=== PATIENT | male | born 1955 | race Caucasian/White ===

== ENCOUNTER 2018-02-04 18:51 | Inpatient (IN) ==
--- NOTE | 2018-02-04 20:09 | ED ---
HPI General Chief complaint: Extremity Injury, Upper Stated complaint: fish hook in finger recheck Time Seen by Provider: 02/04/18 19:31 Source: patient Mode of arrival: ambulatory Limitations: no limitations History of Present Illness HPI narrative: 62-year-old male with history of type 2 diabetes and hypertension , presents emergency department for evaluation of right third digit pain and swelling. Patient states yesterday morning he got a fishhook in the distal aspect of his right third digit. He removed it. He developed some pain and swelling so he went to urgent care. He was started on Bactrim. He has taken this today. He states throughout the course the day the finger has only become more swollen and painful. Patient now has red streaking up the anterior aspect of his right arm to his mid bicep. He has had a low-grade fever and chills. He feels as though something just is not right. He has no other symptoms to report. Related Data Home Medications Medication Instructions Recorded Confirmed amlodipine 5 mg PO DAILY 02/04/18 02/04/18 coenzyme Q10 [Co Q-10] 100 mg PO DAILY 02/04/18 02/04/18 lisinopril-hydrochlorothiazide 1 tab PO DAILY 02/04/18 02/04/18 metformin 1,000 mg PO BID 02/04/18 02/04/18 metoprolol succinate 50 mg PO DAILY 02/04/18 02/04/18 Allergies Allergy/AdvReac Type Severity Reaction Status Date / Time No Known Allergies Allergy Unverified 02/04/18 19:19 Review of Systems ROS: all other systems reviewed are negative PMFSH Medical History Medical History Blood clot in bladder (Acute) Diabetes (Acute) Hypertension (Acute) Pulmonary lump (Acute) Social History Social History Substance History: No History of Abuse Second Hand Smoke Exposure: No Smoking Status: Former smoker How Often Do You Have a Drink Containing Alcohol: 4 or more times a week Recent Travel in [facility] within the Last 8 Weeks: No Recent Out of Country Travel within the Last 8 Weeks: No Immunization History Tetanus Immunization: Unsure Hx Influenza Vaccine This Season: Yes Exam Narrative Exam Narrative: GENERAL: Well-nourished male patient, ambulatory no acute distress. SKIN: Focused skin assessment warm/dry. There is a healed over puncture wound on the volar surface of the distal right third digit. There is associated edema around that area. The finger itself is mildly edematous and erythematous. Patient has erythema extending from the dorsal aspect of the right hand extending up to the mid bicep. There is no axilla tenderness. There are few palpable axilla lymph nodes. HEAD: Atraumatic. Normocephalic. EYES: Pupils equal and round. No scleral icterus. No injection or drainage. ENT: No nasal bleeding or discharge. Mucous membranes pink and moist. NECK: Trachea midline. No JVD. CARDIOVASCULAR: Regular rate and rhythm. No murmur appreciated. RESPIRATORY: No accessory muscle use. Clear to auscultation. Breath sounds equal bilaterally. GASTROINTESTINAL: Abdomen soft, non-tender, nondistended. Hepatic and splenic margins not palpable. MUSCULOSKELETAL: No obvious deformities. No clubbing. No cyanosis. NEUROLOGICAL: Awake and alert. No obvious cranial nerve deficits. Motor grossly within normal limits. Normal speech. PSYCHIATRIC: Appropriate mood and affect; insight and judgment normal. Course Initial Documented Vital Signs Temperature 99.5 F 02/04/18 19:12 Pulse Rate 85 02/04/18 19:12 Respiratory Rate 20 02/04/18 19:12 Blood Pressure 145/71 H 02/04/18 19:12 Pulse Oximetry 97 02/04/18 19:12 Last Documented Vital Signs Temperature 99.5 F 02/04/18 19:12 Pulse Rate 85 02/04/18 19:12 Respiratory Rate 20 02/04/18 19:12 Blood Pressure 145/71 H 02/04/18 19:12 Pulse Oximetry 97 02/04/18 19:12 Medical Decision Making DONOVAN Attestation DONOVAN supervised visit: Yes MDM Narrative Medical decision making narrative: 62-year-old male presents emergency department for evaluation of a fishhook stick to his right third digit. Patient appears well. He has low-grade temperature. The right third digit is mildly edematous with limited flexion and extension that exacerbates pain. He also has associated lymph nodes. I discussed the patient with hand surgeon, Dr. Dietz who actually evaluated the patient at bedside and felt that admission for IV antibiotics would be beneficial. He states that last the patient worsens, he will not need to be consulted. Plan is discussed with the patient and his family. Lab work is reviewed. Patient does have a leukocytosis of 17.5. Lactic acid is still pending. BMP is without acute concern. Patient be admitted to hospitalist for IV antibiotics. Medical Screen Exam Complete: Yes Emergency Medical Condition: Yes Differential Diagnosis Differential Diagnosis: Abscess versus tenosynovitis versus cellulitis versus lymphangitis versus sepsis Lab Data Lab results reviewed: Yes I reviewed the patient's lab results. Result diagrams: 02/04/18 20:15 02/04/18 20:15 Lab Results 02/04/18 02/04/18 02/04/18 Range/Units 20:15 20:15 20:15 WBC 17.5 H (4.0-11.0) th/mm3 RBC 4.04 L (4.50-5.90) mil/mm3 Hgb 15.0 (13.0-17.0) gm/dL Hct 42.8 (39.0-51.0) % MCV 106.0 H (80.0-100.0) fL MCH 37.0 H (27.0-34.0) pg MCHC 34.9 (32.0-36.0) % RDW 12.7 (11.6-17.2) % Plt Count 153 (150-450) th/mm3 MPV 7.4 (7.0-11.0) fL Neut % (Auto) 87.9 H (16.0-70.0) % Lymph % (Auto) 2.8 L (9.0-44.0) % [place] % (Auto) 9.1 H (0.0-8.0) % Eos % (Auto) 0.0 (0.0-4.0) % Baso % (Auto) 0.2 (0.0-2.0) % Neut # (Auto) 15.3 H (1.8-7.7) th/mm3 Lymph # (Auto) 0.5 L (1.0-4.8) th/mm3 [place] # (Auto) 1.6 H (0.0-0.9) th/mm3 Eos # (Auto) 0.0 (0.0-0.4) th/mm3 Baso # (Auto) 0.0 (0.0-0.2) th/mm3 WBC Differential . Differential Comment Auto diff final PT 10.7 (9.8-11.6) sec INR 1.1 Ratio APTT 26.2 (24.3-30.1) sec Sodium 135 L (136-145) meq/L Potassium 4.0 (3.5-5.1) meq/L Chloride 98 (98-107) meq/L Carbon Dioxide 17.9 L (21.0-32.0) meq/L Anion Gap 19 H (5-15) meq/L BUN 16 (7-18) mg/dL Creatinine 1.04 (0.60-1.30) mg/dL Estimated GFR 73 L (>89) mL/min Random Glucose 167 H (74-106) mg/dL Calcium 9.8 (8.5-10.1) mg/dL Imaging Data Radiologist's impression: Finger X-Ray 02/04/18 19:49 CONCLUSION: No evidence of recent bony injury. Discharge Plan Discharge Disposition Patient Disposition: 30 Still Patient Discharge Details Diagnosis: Cellulitis of finger of right hand, Acute lymphangitis Physicians Team ED Provider: Kumar Jackson ED Midlevel Provider: Caitlyn Rivas Primary Care Provider: UNKNOWN, Rxs /Orders / Referrals /Forms Prescriptions: No Action metoprolol succinate 50 mg Tablet Extended Release 24 Hr 50 mg PO DAILY RF: 0 amlodipine 5 mg Tablet 5 mg PO DAILY RF: 0 metformin 1,000 mg Tablet 1,000 mg PO BID RF: 0 lisinopril-hydrochlorothiazide 10-12.5 mg Tablet 1 tab PO DAILY RF: 0 coenzyme Q10 [Co Q-10] 100 mg Capsule 100 mg PO DAILY RF: 0 Status ED Status: With Doctor
[2018-02-04 20:39] LABS: Baso % (Auto) 0.2 % (0.0-2.0); Hematocrit 42.8 % (39.0-51.0); Lymph # (Auto) 0.5 th/mm3 (1.0-4.8); Lymph % (Auto) 2.8 % (9.0-44.0); Mean Corpuscular HGB Conc 34.9 % (32.0-36.0); Mean Platelet Volume 7.4 fL (7.0-11.0); Mono # (Auto) 1.6 th/mm3 (0.0-0.9); Mono % (Auto) 9.1 % (0.0-8.0); Neut # (Auto) 15.3 th/mm3 (1.8-7.7); Neut % (Auto) 87.9 % (16.0-70.0); Platelet Count 153 th/mm3 (150-450); Red Blood Count 4.04 mil/mm3 (4.50-5.90); Red Cell Distribution Width 12.7 % (11.6-17.2); White Blood Count 17.5 th/mm3 (4.0-11.0)
[2018-02-04 20:45] LABS: Activated Partial Thrombo Time 26.2 sec (24.3-30.1); INR 1.1 Ratio; Prothrombin Time 10.7 sec (9.8-11.6)
--- NOTE | 2018-02-04 20:49 | XR ---
EXAM DATE: 02/04/2018 8:17 PM EDT AGE/SEX: 62 years / Male INDICATIONS: Swelling and pain to right 3rd MCPJ status post having fish hook stuck in hand. CLINICAL DATA: This is the patient's initial encounter. Patient reports that signs and symptoms have been present for 3 days and indicates a pain score of 4/10. MEDICAL/SURGICAL HISTORY: None. None. COMPARISON: No prior exams available for comparison. FINDINGS: Bony structures are intact and in normal alignment. Joints are intact without dislocation or signifi cant arthropathy. Osseous density is normal. Soft tissues are unremarkable. No metallic foreign nemesio dies seen. CONCLUSION: No evidence of recent bony injury. Electronically signed by: Hilario Adam MD 02/04/2018 8:47 PM EDT
[2018-02-04 20:56] LABS: Calcium 9.8 mg/dL (8.5-10.1); Carbon Dioxide 17.9 meq/L (21.0-32.0)
[2018-02-04] MEDS ORDERED: Bisacodyl 10 MG Supp RECTAL PRN (22:34)
[2018-02-04] MEDS ORDERED: Temazepam 15 MG Capsule PO PRN (22:34)
[2018-02-04] MEDS ORDERED: Acetaminophen 325 MG Tablet PO PRN (22:34)
[2018-02-04] MEDS ORDERED: Dextrose 50% in Water 50 ML Vial IV.PUSH PRN (22:39)
[2018-02-04] MEDS ORDERED: Heparin - SQ 10,000 UNITS/ML Vial SQ SCH (22:45)
[2018-02-04] MEDS: Sod Chloride 0.9% Inj 1,000 ML IV.CONT SCH (22:59)
--- NOTE | 2018-02-04 23:59 | P.HP ---
History of Present Illness Service: [facility] Primary Care Physician: UNKNOWN History of Present Illness: 62-year-old male with past medical history significant for diabetes mellitus and hypertension presents to the emergency department for the evaluation of right third digit pain and swelling. The patient reports that yesterday he was fishing when he got a fishhook puncture wound in the finger. He states that he developed some pain and swelling so he went to urgent care for further evaluation and was given Bactrim. The patient reports that throughout the course of the day his hand has become more swollen, he states his knuckles are no longer identifiable and the dorsum of his hand is red and painful. The swelling and erythema extends up his arm. He denies any associated fever/ chills. He has difficulty with range of motion. No chest pain or shortness of breath. No abdominal pain. No nausea/vomiting/diarrhea. Inpatient Certification: I certify that the inpatient services were ordered in accordance with Medicare regulations governing the order. This includes certification that hospital inpatient services are reasonable and necessary and in the case of services not specified as inpatient-only under 42 CFR 419.22(n), that they are appropriately provided as inpatient services in accordance to with the 2-midnight benchmark under 43 CFR 412.3(e) Estimated Total Length of Stay (Days): 3 Plans for Post Hospital Care: Home Review of Systems All other systems reviewed negative except as stated in HPI [facility] - History History Provided By: Patient - Medical History Medical History: Medical History (Last Reviewed 02/04/18 @ 21:00 by Caitlyn Rivas [employer]PERATOR) Blood clot in bladder Diabetes Hypertension Pulmonary lump - Surgical History Surgical History: Surgical History (Last Updated 02/04/18 @ 23:52 by Meli Burton MD) History of lung surgery - Family History Family History: Family History (Last Updated 02/04/18 @ 23:52 by Meli Burton MD) Other Diabetes mellitus Lung cancer - Tobacco History Second Hand Smoke Exposure: No Smoking Status: Former smoker - Alcohol History How Often Do You Have a Drink Containing Alcohol: 4 or more times a week - Substance Use History Substance History: No History of Abuse - Travel History Recent Travel in the [place] Within the Last 8 Weeks: No Recent Travel Out of the Country Within the Last 8 Weeks: No - Immunization History Tetanus Immunization: Unsure Hx Influenza Vaccine This Season: Yes Medications and Allergies Active Medications: Active Medications Acetaminophen (Tylenol) 650 mg PO Q4H PRN PRN Reason: Temp > 100.4 Hydrocodone Bitart/Acetaminophen ([place] 5/325) 1 tab PO Q4H PRN PRN Reason: pain > 4 Last Admin: 02/04/18 23:00 Dose: 1 tab Al Hydroxide/Mg Hydroxide (Milk Of Honorio Salvadorq) 30 ml PO Q12H PRN PRN Reason: Mild Constipation Amlodipine Besylate (Norvasc) 5 mg PO DAILY WAYNE Bisacodyl (Dulcolax Supp) 10 mg RECTAL DAILY PRN PRN Reason: SEVERE CONSITIPATION Dextrose (D50w Vial) 50 ml IV.PUSH UNSCH PRN PRN Reason: PER HYPOGLYCEMIA PROTOCOL Glucagon (Glucagon Inj) 1 mg OTHER PRN PRN PRN Reason: for Hypoglycemia Protocol Heparin Sodium (Porcine) (Heparin Inj) 5,000 units SQ Q8H WAYNE Last Admin: 02/04/18 22:59 Dose: Not Given Ceftriaxone Sodium 1,000 mg/ (Sodium Chloride) 100 mls @ 200 mls/hr IV.SIG Q24H WAYNE Doxycycline Hyclate 100 mg/ (Sodium Chloride) 100 mls @ 100 mls/hr IV.SIG Q12H WAYNE Sodium Chloride (Ns Inj) 1,000 mls @ 125 mls/hr IV.CONT .Q8H WAYNE Last Admin: 02/04/18 22:59 Dose: 125 mls/hr Vancomycin HCl 1,000 gm/ (Sodium Chloride) 250 mls @ 200 mls/hr IV.SIG ONCE ONE Stop: 02/05/18 01:44 Insulin Aspart (Novolog Insulin Correctional Sugar Inj) 0 unit SQ ACHS AND 3AM WAYNE; Protocol Lisinopril (Prinivil) 10 mg PO DAILY [facility] Metoprolol Succinate (Toprol Xl) 50 mg PO DAILY [facility] Ondansetron HCl (Zofran Inj) 4 mg IV.PUSH Q6H PRN PRN Reason: NAUSEA OR VOMITING Sennosides (Senokot) 17.2 mg PO Q12H PRN PRN Reason: Moderate Constipation Temazepam (Restoril) 15 mg PO HS PRN PRN Reason: INSOMNIA Allergies Allergy/AdvReac Type Severity Reaction Status Date / Time No Known Allergies Allergy Unverified 02/04/18 19:19 Home Medications Medication Instructions Recorded Confirmed Type amlodipine 5 mg PO DAILY 08/21/18 08/21/18 History coenzyme Q10 [Co Q-10] 100 mg PO DAILY 02/04/18 02/04/18 History lisinopril-hydrochlorothiazide 1 tab PO DAILY 02/04/18 02/04/18 History metformin 1,000 mg PO BID 02/04/18 02/04/18 History metoprolol succinate 50 mg PO DAILY 02/04/18 02/04/18 History Exam Vital signs: Vital Signs 02/04/18 19:12 02/04/18 22:08 Temperature 99.5 F Pulse Rate 85 88 Respiratory Rate 20 20 Blood Pressure 145/71 H 136/71 Pulse Oximetry 97 96 Narrative: Gen.: No acute distress Head: Normocephalic. Atraumatic. EENT: Pupils equal round and reactive to light. Nose without drainage. Airway intact. Throat without injection. Cardiovascular: Regular rate and rhythm. No murmurs, rubs or gallops. Respiratory: Lungs clear to auscultation bilaterally. No wheezes or rhonchi. Abdomen: Soft, nontender, nondistended. No peritoneal signs. Musculoskeletal: No gross deformities. No edema. Skin: Healed puncture wound over the volar surface of the distal right third digit. Associated edema and erythema. Erythema extends from the dorsal aspect of the right hand to the mid bicep. Neuro: Sensory and motor grossly intact. Cranial nerves II through XII grossly intact. Psych: Appropriate mood and affect Results - Labs CBC & Chem 7: 02/04/18 20:15 02/04/18 20:15 Labs: Laboratory Results - last 24 hr 02/04/18 02/04/18 02/04/18 20:15 20:15 20:15 WBC 17.5 H RBC 4.04 L Hgb 15.0 Hct 42.8 MCV 106.0 H MCH 37.0 H MCHC 34.9 RDW 12.7 Plt Count 153 MPV 7.4 Neut % (Auto) 87.9 H Lymph % (Auto) 2.8 L [place] % (Auto) 9.1 H Eos % (Auto) 0.0 Baso % (Auto) 0.2 Neut # (Auto) 15.3 H Lymph # (Auto) 0.5 L [place] # (Auto) 1.6 H Eos # (Auto) 0.0 Baso # (Auto) 0.0 WBC Differential . Differential Comment Auto diff final PT 10.7 INR 1.1 APTT 26.2 Sodium 135 L Potassium 4.0 Chloride 98 Carbon Dioxide 17.9 L Anion Gap 19 H BUN 16 Creatinine 1.04 Estimated GFR 73 L Random Glucose 167 H Lactic Acid Calcium 9.8 02/04/18 20:15 WBC RBC Hgb Hct MCV MCH MCHC RDW Plt Count MPV Neut % (Auto) Lymph % (Auto) [place] % (Auto) Eos % (Auto) Baso % (Auto) Neut # (Auto) Lymph # (Auto) [place] # (Auto) Eos # (Auto) Baso # (Auto) WBC Differential Differential Comment PT INR APTT Sodium Potassium Chloride Carbon Dioxide Anion Gap BUN Creatinine Estimated GFR Random Glucose Lactic Acid 7.6 H* Calcium - Imaging Impressions Finger X-Ray 02/04/18 19:49 CONCLUSION: No evidence of recent bony injury. Caprini VTE Risk Assessment Caprini VTE Risk Assessment: Moderate/High Risk (score >= 2) Caprini Risk Assessment Model: Point Value = 1 Point Value = 2 Point Value = 3 Point Value = 5 Age 41-60 Minor surgery BMI > 25 kg/m2 Swollen legs Varicose veins or History of unexplained or recurrent spontaneous Oral contraceptives or hormone replacement Sepsis (< 1 month) Serious lung disease, including pneumonia (< 1 month) Abnormal pulmonary function Acute myocardial infarction Congestive heart failure (< 1 month) History of inflammatory bowel disease Medical patient at bed rest Age 61-74 Arthroscopic surgery Major open surgery (> 45 min) Laparoscopic surgery (> 45 min) Malignancy Confined to bed (> 72 hours) Immobilizing plaster cast Central venous access Age >= 75 History of VTE Family history of VTE Factor V Leiden Prothrombin [id number] Lupus anticoagulant Anticardiolipin antibodies Elevated serum homocysteine Heparin-induced thrombocytopenia Other congenital or acquired thrombophilia Stroke (< 1 month) Elective arthroplasty Hip, pelvis, or leg fracture Acute spinal cord injury (< 1 month) Prophylaxis Regimen: Total Risk Factor Score Risk Level Prophylaxis Regimen 0-1 Low Early ambulation 2 Moderate Order ONE of the following: *Sequential Compression Device (SCD) *Heparin 5000 units SQ BID 3-4 Higher Order ONE of the following medications: *Heparin 5000 units SQ TID *Enoxaparin/Lovenox 40 mg SQ daily (WT < 150 kg, CrCl > 30 mL/min) *Enoxaparin/Lovenox 30 mg SQ daily (WT < 150 kg, CrCl > 10-29 mL/min) *Enoxaparin/Lovenox 30 mg SQ BID (WT < 150 kg, CrCl > 30 mL/min) AND/OR *Sequential Compression Device (SCD) 5 or more Highest Order ONE of the following medications: *Heparin 5000 units SQ TID (Preferred with Epidurals) *Enoxaparin/Lovenox 40 mg SQ daily (WT < 150 kg, CrCl > 30 mL/min) *Enoxaparin/Lovenox 30 mg SQ daily (WT < 150 kg, CrCl > 10-29 mL/min) *Enoxaparin/Lovenox 30 mg SQ BID (WT < 150 kg, CrCl > 30 mL/min) AND *Sequential Compression Device (SCD) Assessment and Plan - Plan Assessment/plan: 1. Right finger/hand cellulitis/sepsis Finger x-ray negative for bony abnormalities Lactic acid elevated at 7.6, repeat pending Doxycycline/vancomycin/Rocephin to cover for possible vibrio Patient evaluated by the hand surgeon who recommends IV antibiotics and requests consult if patient does not improve clinically 2. Diabetes mellitus Sliding-scale insulin Monitor blood glucose 3. Hypertension Continue home medications FEN N.p.o. Electrolytes: Monitor and replete as needed NS at 1 25 cc/hour Holding pharmacologic anticoagulation for possible operative intervention
[2018-02-05] MEDS ORDERED: VANCOMYCIN IV.SIG ONE (00:30)
[2018-02-05] MEDS ORDERED: SODIUM CHLOR 0.9% IV.SIG ONE (00:30)
[2018-02-05] MEDS: Insulin NovoLOG Aspart Correctional Sugar Inj SQ SCH ×5 (03:09→22:01)
[2018-02-05] MEDS ORDERED: Lisinopril 10 MG Tablet PO SCH (09:00)
[2018-02-05 10:15] LABS: Baso % (Auto) 0.2 % (0.0-2.0); Eos % (Auto) 0.1 % (0.0-4.0); Hematocrit 39.5 % (39.0-51.0); Lymph # (Auto) 0.8 th/mm3 (1.0-4.8); Lymph % (Auto) 6.3 % (9.0-44.0); Mean Corpuscular HGB Conc 35.6 % (32.0-36.0); Mean Corpuscular Hemoglobin 37.9 pg (27.0-34.0); Mean Corpuscular Volume 106.4 fL (80.0-100.0); Mono # (Auto) 1.2 th/mm3 (0.0-0.9); Mono % (Auto) 9.3 % (0.0-8.0); Neut # (Auto) 11.1 th/mm3 (1.8-7.7); Neut % (Auto) 84.1 % (16.0-70.0); Platelet Count 123 th/mm3 (150-450); Red Blood Count 3.71 mil/mm3 (4.50-5.90); Red Cell Distribution Width 12.6 % (11.6-17.2); White Blood Count 13.2 th/mm3 (4.0-11.0)
[2018-02-05] MEDS: amLODIPine 5 MG Tablet PO SCH (10:17)
[2018-02-05] MEDS: Sod Chloride 0.9% Inj 1,000 ML IV.CONT SCH ×2 (10:19→15:13)
[2018-02-05 10:38] LABS: Anion Gap 9 meq/L (5-15); Blood Urea Nitrogen 12 mg/dL (7-18); Calcium 8.9 mg/dL (8.5-10.1); Carbon Dioxide 26.8 meq/L (21.0-32.0); Chloride 105 meq/L (98-107); Glomerular Filtration Rate Greater Than 89 mL/min (>89); Glucose,Random 166 mg/dL (74-106); Potassium 3.6 meq/L (3.5-5.1); Sodium 141 meq/L (136-145)
--- NOTE | 2018-02-05 11:39 | P.PN ---
Subjective Interval history: Follow-up for right third digit and hand cellulitis. The patient is concerned today as he reports increasing swelling of the right third digit and into the dorsal hand with increased red streaking up the arm. He denies fevers or chills. Denies any other medical complaints. He is requesting to see the hand surgeon. Physical Exam Vital signs: Vital Signs 02/04/18 19:12 02/04/18 22:08 02/05/18 00:00 Temperature 99.5 F 99.7 F H Pulse Rate 85 88 79 Respiratory Rate 20 20 16 Blood Pressure 145/71 H 136/71 144/76 H Pulse Oximetry 97 96 97 02/05/18 04:00 02/05/18 07:56 Temperature 98.0 F 98.1 F Pulse Rate 66 71 Respiratory Rate 15 16 Blood Pressure 130/75 138/64 Pulse Oximetry 96 96 Intake & Output 02/04/18 02/05/18 02/05/18 18:59 06:59 18:59 Intake Total 450 / 450 1000 / 1000 Balance 450 / 450 1000 / 1000 Weight 86 kg Intake: IV 450 / 450 1000 / 1000 NS Inj 1,000 ML @ 125 mls/hr IV 1000 / 1000 .CONT .Q8H [facility] Rx#:[id number] Doxy 100 Inj 100 MG In NS Inj 100 / 100 100 ML @ 100 mls/hr IV.SIG Q12H [facility] Rx#:[id number] Vancomycin Inj 1,000 GM In NS 250 / 250 Inj 250 ML @ 200 mls/hr IV.SIG ONCE ONE Rx#:[id number] Rocephin Inj 1,000 MG In NS Inj 100 / 100 100 ML @ 200 mls/hr IV.SIG Q24H [facility] Rx#:[id number] Other: Weight On Admission 86 kg Narrative: GENERAL: Well-nourished, well-developed pleasant middle-age male patient in [facility]. SKIN: Warm and dry. Right 3rd digit with diffuse erythema/edema and distal ecchymosis, with erythema/edema that extends to the dorsal MCP joints, some faint streaking up to the mid forearm and again in the medial upper arm, consistent with lymphangitis. HEENT: Normocephalic. Atraumatic. Pupils equal and round. Mucous membranes pink and moist. CARDIOVASCULAR: Regular rate and rhythm. No murmur appreciated. RESPIRATORY: No accessory muscle use. Clear to auscultation. Breath sounds equal bilaterally. GASTROINTESTINAL: Abdomen soft, non-tender, nondistended. Normoactive bowel sounds x4. MUSCULOSKELETAL: No obvious deformities. Extremities without clubbing, cyanosis , or edema. See skin assessment above. Right third digit with decreased ROM secondary to edema. NEUROLOGICAL: Awake and alert. No obvious cranial nerve deficits.Moving all extremities spontaneously. Normal speech. PSYCHIATRIC: Appropriate mood and affect; insight and judgment normal. Results - Labs CBC & Chem 7: 02/05/18 09:07 02/05/18 09:07 Laboratory Results - last 24 hr 02/04/18 02/04/18 02/04/18 20:15 20:15 20:15 WBC 17.5 H RBC 4.04 L Hgb 15.0 Hct 42.8 MCV 106.0 H MCH 37.0 H MCHC 34.9 RDW 12.7 Plt Count 153 MPV 7.4 Neut % (Auto) 87.9 H Lymph % (Auto) 2.8 L [place] % (Auto) 9.1 H Eos % (Auto) 0.0 Baso % (Auto) 0.2 Neut # (Auto) 15.3 H Lymph # (Auto) 0.5 L [place] # (Auto) 1.6 H Eos # (Auto) 0.0 Baso # (Auto) 0.0 WBC Differential . Differential Comment Auto diff final PT 10.7 INR 1.1 APTT 26.2 Sodium 135 L Potassium 4.0 Chloride 98 Carbon Dioxide 17.9 L Anion Gap 19 H BUN 16 Creatinine 1.04 Estimated GFR 73 L POC Glucose Random Glucose 167 H Lactic Acid Calcium 9.8 02/04/18 02/05/18 02/05/18 20:15 08:44 09:06 WBC RBC Hgb Hct MCV MCH MCHC RDW Plt Count MPV Neut % (Auto) Lymph % (Auto) [place] % (Auto) Eos % (Auto) Baso % (Auto) Neut # (Auto) Lymph # (Auto) [place] # (Auto) Eos # (Auto) Baso # (Auto) WBC Differential Differential Comment PT INR APTT Sodium Potassium Chloride Carbon Dioxide Anion Gap BUN Creatinine Estimated GFR POC Glucose 164 H Random Glucose Lactic Acid 7.6 H* 1.8 Calcium 02/05/18 02/05/18 09:07 09:07 WBC 13.2 H RBC 3.71 L Hgb 14.0 Hct 39.5 MCV 106.4 H MCH 37.9 H MCHC 35.6 RDW 12.6 Plt Count 123 L MPV 8.0 Neut % (Auto) 84.1 H Lymph % (Auto) 6.3 L [place] % (Auto) 9.3 H Eos % (Auto) 0.1 Baso % (Auto) 0.2 Neut # (Auto) 11.1 H Lymph # (Auto) 0.8 L [place] # (Auto) 1.2 H Eos # (Auto) 0.0 Baso # (Auto) 0.0 WBC Differential . Differential Comment Auto diff final PT INR APTT Sodium 141 Potassium 3.6 Chloride 105 Carbon Dioxide 26.8 Anion Gap 9 BUN 12 Creatinine 0.83 Estimated GFR Greater than 89 POC Glucose Random Glucose 166 H Lactic Acid Calcium 8.9 D Microbiology 02/04/18 20:15 Blood - Peripheral Aerobic Blood Culture - Preliminary No growth in 1 day 02/04/18 20:15 Blood - Peripheral Anaerobic Blood Culture - Preliminary No growth in 1 day 02/04/18 20:25 Blood - Peripheral Aerobic Blood Culture - Preliminary No growth in 1 day 02/04/18 20:25 Blood - Peripheral Anaerobic Blood Culture - Preliminary No growth in 1 day - Imaging Impressions Finger X-Ray 02/04/18 19:49 CONCLUSION: No evidence of recent bony injury. Assessment and Plan - Plan 62-year-old male with past medical history significant for diabetes mellitus and hypertension presents to the emergency department for the evaluation of right third digit pain and swelling. Right finger/hand cellulitis/sepsis: s/p puncture wound with fishing hook and salt water exposure. -Finger x-ray negative for bony abnormalities -Update tetanus vaccine -Lactic acid elevated at 7.6, repeat 1.8 -Continue antibiotics with IV Vanco, IV Cefepime, and IV doxycycline to cover for Vibrio -Consulted hand surgery, appreciate assistance -Consulted infectious disease, appreciate assistance -Elevate RUE with sling/IV pole Diabetes mellitus: chronic -hold patient's metformin -Monitor Accu-Cheks and cover with SSI Hypertension: chronic, BP fairly well controlled -Continue patient's lisinopril, HCTZ, amlodipine, metoprolol -Monitor BP, adjust antihypertensives as needed DVT Prophylaxis: teds/SCDs; avoid chemical prophylaxis incase surgery is indicated Discharge Planning: Discharge pending further clinical improvement. Likely needs additional 2-3days of IV antibiotics.
--- NOTE | 2018-02-05 14:01 | MB ---
cc: Danielito Pantoja MD DATE: 02/05/2018 REQUESTING PHYSICIAN: Dr. Duff. REASON FOR CONSULTATION: Right third digit and hand cellulitis/lymphangitis secondary to saltwater fishing hook wound. HISTORY OF PRESENT ILLNESS: This is a 62-year-old white male who sustained an injury to the right third finger at the distal palmar aspect with a fishing hook while he was fishing 2 days ago in the ocean. The patient developed erythema and he was evaluated as an outpatient at an urgent care and he was started on Bactrim. He subsequently noticed swelling becoming worse and more painful and streaking red pack up the anterior aspect of his right arm up to his mid humerus. He denies chills to me. He was evaluated in the emergency department and started on antibiotics. Blood cultures were taken. His white blood cell count was elevated at 17.5. He had low-grade fever of 99.7 early this morning. Blood cultures are pending. The patient states that he has pain in the right hand, which is improved when he takes pain medications. He denies nausea or vomiting or other symptoms. He is awake and alert and oriented. This consultation was requested for antibiotic management. PAST MEDICAL HISTORY: Diabetes mellitus, hypertension, history of lung surgery, history of clots in the bladder about 2 years ago. ALLERGIES: NO KNOWN DRUG ALLERGIES. MEDICATIONS: 1. Doxycycline. 2. Ceftriaxone. 3. Norvasc. 4. [place] 5 p.r.n. 5. Toprol-XL. 6. Prinivil. SOCIAL HISTORY: The patient is . No tobacco. The patient drinks alcohol a few times a month. No illicit drugs. FAMILY HISTORY: Significant for lung cancer and diabetes mellitus. REVIEW OF SYSTEMS: All systems have been reviewed and are negative, except for that mentioned in the history of present illness, namely pain in the right hand, along with swelling. PHYSICAL EXAMINATION: GENERAL: Well-developed male who is in no acute distress. He is awake and alert and oriented. VITAL SIGNS: Includes temperature of 98.5, BP 139/69, respirations 16, heart rate 75. HEENT: The head is atraumatic. Extraocular movements grossly intact. Pupils reactive to light. No icterus. Oropharynx: Mucosa is moist. NECK: Supple, no adenopathy. LUNGS: Clear to auscultation. HEART: Regular rate and rhythm without murmurs, rubs or gallops. ABDOMEN: Bowel sounds present. Soft, no tenderness appreciated. LYMPH NODES: No adenopathy. EXTREMITIES: The right hand has purplish discoloration at the bulb of the third finger distal aspect. There is erythema at the base of the third and fourth fingers at the dorsal aspect of the hand. There is swelling as well of the arm and erythema, streaking of the anterior forearm and erythema at the humerus above the elbow inner aspect. The skin has no diffuse rash. The other extremities have no clubbing, cyanosis or edema. NEUROLOGIC: No gross focal findings. PSYCHIATRIC: Patient calm and cooperative. LABORATORY DATA: WBC 15.2, platelets 123, hemoglobin 14.0, 84% neutrophils, 6% lymphocytes. Creatinine 0.83, BUN 12, sodium 141. Lactic acid level on 02/04/2018 was 7.6. IMPRESSION: 1. Cellulitis of the right third finger and right hand following a fishhook injury in salt water environment. The fishing hook had already been in use prior to the fishhook injury to the third finger. 2. Lymphangitis of the right hand. 3. Diabetes mellitus. 4. Leukocytosis secondary to infection. RECOMMENDATIONS: 1. Continue doxycycline, which will give good coverage for Vibrio. 2. Change ceftriaxone to cefepime. 3. Monitor response of the wound to treatment. 4. Monitor blood cultures. 5. Monitor clinical status. Thank you for this consultation. I will follow the patient's progress along with you and will make further recommendations upon followup, if indicated. MD RENE Rivera/[email or web address] , 01:25 PM , 01:39 PM
[2018-02-05] MEDS ORDERED: Tetanus/Diphtheria Toxoid Adult Vaccine Inj 0.5 ML Vial IM ONE (15:44)
[2018-02-06] MEDS: Sod Chloride 0.9% Inj 1,000 ML IV.CONT SCH ×3 (00:06→18:16)
[2018-02-06] MEDS: Insulin NovoLOG Aspart Correctional Sugar Inj SQ SCH ×5 (03:15→21:49)
[2018-02-06] MEDS ORDERED: Non-Formulary Drug (Lisinopril-Hydrochlorothiazide [Lisinopril-Hydrochlorothiazide] 1 TAB) PO SCH (09:00)
[2018-02-06] MEDS: amLODIPine 5 MG Tablet PO SCH (09:10)
[2018-02-06] MEDS: Lisinopril 10 MG Tablet PO SCH (11:08)
--- NOTE | 2018-02-06 13:06 | P.PNID ---
Subjective Remarks: Patient states that he feels okay. He has pain in the third middle finger which is of a throbbing nature. Denies chills or sweats. Low-grade fever. The entire distal tip of the third finger has necrosis. Blood culture has no growth. Patient's noted that he also was poked by a raw shrimp on the third middle finger also. This is a 62-year-old white male who sustained an injury to the right third finger at the distal palmar aspect with a fishing hook while he was fishing 2 days ago in the ocean. The patient developed erythema and he was evaluated as an outpatient at an urgent care and he was started on Bactrim. He subsequently noticed swelling becoming worse and more painful and streaking red pack up the anterior aspect of his right arm up to his mid humerus. Past Medical History: PAST MEDICAL HISTORY: Diabetes mellitus, hypertension, history of lung surgery, history of clots in the bladder about 2 years ago. Allergies/Adverse Reactions: Allergies No Known Allergies Allergy (Unverified 02/04/18 19:19) Objective Vital Signs 02/05/18 15:40 02/05/18 19:42 02/05/18 20:00 Temperature 99.3 F 99.1 F Pulse Rate 76 66 66 Respiratory Rate 16 18 Blood Pressure 141/76 H 132/66 Pulse Oximetry 96 98 02/05/18 23:30 02/06/18 01:00 02/06/18 04:00 Temperature 98.4 F 98.2 F Pulse Rate 73 66 70 Respiratory Rate 18 18 Blood Pressure 152/83 H 133/63 Pulse Oximetry 97 95 02/06/18 08:00 02/06/18 11:47 Temperature 99.4 F 99.9 F H Pulse Rate 69 68 Respiratory Rate 16 16 Blood Pressure 145/67 H 136/73 Pulse Oximetry 96 97 Intake & Output 02/05/18 02/06/18 02/06/18 18:59 06:59 18:59 Intake Total 1200 / 1200 2530 / 2530 1000 / 1000 Output Total 1000 / 1000 Balance 1200 / 1200 1530 / 1530 1000 / 1000 Weight 86.7 kg Intake: IV 1200 / 1200 0 / 2050 1000 / 1000 NS Inj 1,000 ML @ 125 mls/hr IV 1000 / 1000 1850 / 1850 1000 / 1000 .CONT .Q8H [facility] Rx#:[id number] Maxipime Inj 2,000 MG In NS Inj 100 / 100 100 / 100 100 ML @ 200 mls/hr IV.SIG Q8H [facility] Rx#:[id number] Doxy 100 Inj 100 MG In NS Inj 100 / 100 100 / 100 100 ML @ 100 mls/hr IV.SIG Q12H [facility] Rx#:[id number] Oral 480 / 480 Output: Urine 1000 / 1000 Other: Date of Last Bowel Movement 02/04/18 02/04/18 02/04/18 02/04/18 20:15 Blood - Peripheral Aerobic Blood Culture - Preliminary No growth in 2 days 02/04/18 20:15 Blood - Peripheral Anaerobic Blood Culture - Preliminary No growth in 2 days 02/04/18 20:25 Blood - Peripheral Aerobic Blood Culture - Preliminary No growth in 2 days 02/04/18 20:25 Blood - Peripheral Anaerobic Blood Culture - Preliminary No growth in 2 days Lab - Hematology Results 02/04/18 02/05/18 20:15 09:07 WBC 17.5 H 13.2 H RBC 4.04 L 3.71 L Hgb 15.0 14.0 Hct 42.8 39.5 MCV 106.0 H 106.4 H MCH 37.0 H 37.9 H MCHC 34.9 35.6 RDW 12.7 12.6 Plt Count 153 123 L MPV 7.4 8.0 Neut % (Auto) 87.9 H 84.1 H Lymph % (Auto) 2.8 L 6.3 L [place] % (Auto) 9.1 H 9.3 H Eos % (Auto) 0.0 0.1 Baso % (Auto) 0.2 0.2 Neut # (Auto) 15.3 H 11.1 H Lymph # (Auto) 0.5 L 0.8 L [place] # (Auto) 1.6 H 1.2 H Eos # (Auto) 0.0 0.0 Baso # (Auto) 0.0 0.0 WBC Differential . . Differential Comment Auto diff final Auto diff final Lab - Chemistry Results 02/04/18 02/04/18 02/05/18 20:15 20:15 08:44 Sodium 135 L Potassium 4.0 Chloride 98 Carbon Dioxide 17.9 L Anion Gap 19 H BUN 16 Creatinine 1.04 Estimated GFR 73 L POC Glucose 164 H Random Glucose 167 H Lactic Acid 7.6 H* Calcium 9.8 02/05/18 02/05/18 02/05/18 09:06 09:07 12:17 Sodium 141 Potassium 3.6 Chloride 105 Carbon Dioxide 26.8 Anion Gap 9 BUN 12 Creatinine 0.83 Estimated GFR Greater than 89 POC Glucose 178 H Random Glucose 166 H Lactic Acid 1.8 Calcium 8.9 D 02/05/18 02/05/18 02/06/18 18:43 21:09 02:55 Sodium Potassium Chloride Carbon Dioxide Anion Gap BUN Creatinine Estimated GFR POC Glucose 166 H 202 H 154 H Random Glucose Lactic Acid Calcium 02/06/18 08:15 Sodium Potassium Chloride Carbon Dioxide Anion Gap BUN Creatinine Estimated GFR POC Glucose 197 H Random Glucose Lactic Acid Calcium Imaging: ITS Impressions Finger X-Ray 02/04/18 19:49 CONCLUSION: No evidence of recent bony injury. Physical Exam: PHYSICAL EXAMINATION: GENERAL: Patient is in no acute distress. He is awake and alert and oriented. HEENT: The head is atraumatic. Extraocular movements grossly intact. Pupils reactive to light. No icterus. Oropharynx: Mucosa is moist. NECK: Supple, no adenopathy. LUNGS: Clear to auscultation. HEART: Regular rate and rhythm without murmurs, rubs or gallops. ABDOMEN: Bowel sounds present. Soft, no tenderness appreciated. LYMPH NODES: No adenopathy. EXTREMITIES: The right hand has necrosis at the bulb of the third finger distal aspect. No longer has erythema of the right humerus. The erythema at the forearm has improved. The erythema at the base of the third and fourth fingers has decreased. The entire third finger remains erythematous. There is also necrotic debris along with third finger beyond the DIP joint at the inner aspect. SKIN: No diffuse rash. NEUROLOGIC: No gross focal findings. PSYCHIATRIC: Calm and cooperative. Assessment and Plan - Plan IMPRESSION: 1. Necrotic cellulitis of the right third finger and right hand following a fishhook injury in salt water environment. The fishing hook had already been in use prior to the fishhook injury to the third finger. Slightly improved. 2. Lymphangitis of the right hand. 3. Diabetes mellitus. 4. Leukocytosis secondary to infection. RECOMMENDATIONS: 1. Continue doxycycline, coverage for vibrio. 2. Continue cefepime additional coverage for other gram-negative organisms. 3. Monitor clinical response 4. Monitor blood cultures. Plans for continued IV antibiotic and monitoring the wound on a daily basis discussed with the patient and his . Discussed with Dr. Dietz.
--- NOTE | 2018-02-06 16:23 | P.PNIM ---
Subjective Interval history: Patient reports he is feeling ok. Hand feels better. He is able to move the joints better. Physical Exam Vital signs: Vital Signs 02/05/18 19:42 02/05/18 20:00 02/05/18 23:30 Temperature 99.1 F 98.4 F Pulse Rate 66 66 73 Respiratory Rate 18 18 Blood Pressure 132/66 152/83 H Pulse Oximetry 98 97 02/06/18 01:00 02/06/18 04:00 02/06/18 08:00 Temperature 98.2 F 99.4 F Pulse Rate 66 70 69 Respiratory Rate 18 16 Blood Pressure 133/63 145/67 H Pulse Oximetry 95 96 02/06/18 11:47 02/06/18 15:38 Temperature 99.9 F H 99.9 F H Pulse Rate 68 70 Respiratory Rate 16 16 Blood Pressure 136/73 129/60 Pulse Oximetry 97 96 Intake & Output 02/05/18 02/06/18 02/06/18 18:59 06:59 18:59 Intake Total 1200 / 1200 2530 / 2530 1000 / 1000 Output Total 1000 / 1000 Balance 1200 / 1200 1530 / 1530 1000 / 1000 Weight 86.7 kg Intake: IV 1200 / 1200 2050 / 2050 1000 / 1000 NS Inj 1,000 ML @ 125 mls/hr IV 1000 / 1000 1850 / 1850 1000 / 1000 .CONT .Q8H [facility] Rx#:[id number] Maxipime Inj 2,000 MG In NS Inj 100 / 100 100 / 100 100 ML @ 200 mls/hr IV.SIG Q8H [facility] Rx#:[id number] Doxy 100 Inj 100 MG In NS Inj 100 / 100 100 / 100 100 ML @ 100 mls/hr IV.SIG Q12H [facility] Rx#:[id number] Oral 480 / 480 Output: Urine 1000 / 1000 Other: Date of Last Bowel Movement 02/04/18 02/04/18 02/04/18 Narrative: GENERAL: Well-nourished, well-developed pleasant middle-age male patient in [facility]. SKIN: Warm and dry. Right 3rd digit with diffuse erythema/edema and distal necrosis CARDIOVASCULAR: Regular rate and rhythm. No murmur appreciated. RESPIRATORY: No accessory muscle use. Clear to auscultation. Breath sounds equal bilaterally. GASTROINTESTINAL: Abdomen soft, non-tender, nondistended. Normoactive bowel sounds x4. Results - Labs CBC & Chem 7: 02/05/18 09:07 02/05/18 09:07 Laboratory Results - last 24 hr 02/05/18 02/05/18 02/06/18 18:43 21:09 02:55 POC Glucose 166 H 202 H 154 H 02/06/18 02/06/18 08:15 13:33 POC Glucose 197 H 204 H Microbiology 02/04/18 20:15 Blood - Peripheral Aerobic Blood Culture - Preliminary No growth in 2 days 02/04/18 20:15 Blood - Peripheral Anaerobic Blood Culture - Preliminary No growth in 2 days 02/04/18 20:25 Blood - Peripheral Aerobic Blood Culture - Preliminary No growth in 2 days 02/04/18 20:25 Blood - Peripheral Anaerobic Blood Culture - Preliminary No growth in 2 days Assessment and Plan - Plan 62-year-old male with past medical history significant for diabetes mellitus and hypertension presents to the emergency department for the evaluation of right third digit pain and swelling. Right finger/hand cellulitis/sepsis: s/p puncture wound with fishing hook and salt water exposure. -Finger x-ray negative for bony abnormalities -Update tetanus vaccine -Lactic acid elevated at 7.6, repeat 1.8 -Continue antibiotics per ID guidance. IV Cefepime, and IV doxycycline to cover for Vibrio -Hand surgery consulted -Elevate RUE with sling/IV pole Diabetes mellitus: chronic -Monitor Accu-Cheks and cover with SSI Hypertension: chronic, BP fairly well controlled -Continue patient's lisinopril, HCTZ, amlodipine, metoprolol -Monitor BP, adjust antihypertensives as needed DVT Prophylaxis: teds/SCDs; ambulatory. avoid chemical prophylaxis incase surgery is indicated Discharge Planning: Continue IV antibiotics. Plan to DC home when ready.
[2018-02-07] MEDS: Sod Chloride 0.9% Inj 1,000 ML IV.CONT SCH ×2 (00:48→06:10)
[2018-02-07] MEDS: Insulin NovoLOG Aspart Correctional Sugar Inj SQ SCH ×3 (04:13→12:13)
[2018-02-07] MEDS: amLODIPine 5 MG Tablet PO SCH (08:36)
[2018-02-07] MEDS: Lisinopril 10 MG Tablet PO SCH (08:37)
[2018-02-07 09:14] LABS: Baso % (Auto) 0.5 % (0.0-2.0); Eos % (Auto) 0.4 % (0.0-4.0); Hematocrit 39.2 % (39.0-51.0); Lymph # (Auto) 1.1 th/mm3 (1.0-4.8); Lymph % (Auto) 14.7 % (9.0-44.0); Mean Corpuscular HGB Conc 35.8 % (32.0-36.0); Mean Corpuscular Hemoglobin 37.6 pg (27.0-34.0); Mean Platelet Volume 7.9 fL (7.0-11.0); Mono # (Auto) 0.8 th/mm3 (0.0-0.9); Mono % (Auto) 10.3 % (0.0-8.0); Neut # (Auto) 5.6 th/mm3 (1.8-7.7); Neut % (Auto) 74.1 % (16.0-70.0); Platelet Count 126 th/mm3 (150-450); Red Blood Count 3.73 mil/mm3 (4.50-5.90); Red Cell Distribution Width 12.5 % (11.6-17.2); White Blood Count 7.6 th/mm3 (4.0-11.0)
--- NOTE | 2018-02-07 11:59 | P.DCO ---
Post Hospital Infusion Therapy Patient Weight: 86.7 kg - Diagnosis (1) Cellulitis of finger of right hand Code(s): L03.011 - Cellulitis of right finger - Administer Medication Ceftriaxone Dose: 2 grams IV Directions: q 24 hours Start Treatment: 02/08/18 Stop Treatment: 02/12/18 - Additional Information Venous Access: Other (Follow up with hand Dr Dietz on Saturday02/10/18. Keep peripheral IV in place for antibiotics unless it infiltrates. ) Additional Instructions: [x] Peripheral flush and dressing changes per protocol [x] Implanted port and central online banking specialist: * Implanted port: 10 ml Normal Saline followed by 5 ml Heparin 100 units/ml Heparin flush after each use and monthly to maintain. [] May leave port accessed during therapy. [] May leave peripheral site accessed for duration of therapy. [x] If patient has SOB or respiratory distress, check oxygen saturation. If less than 90% or clinical signs of respiratory distress, administer oxygen at 2 L/min. via nasal cannula and notify physician. [x] Anaphylaxis/Reaction orders: * Stop infusion. * Keep IV line open with saline flush. * Notify physician. * Monitor vital signs every 15 minutes until symptoms resolve. * Check Oxygen saturation; Oxygen at 2 L/min. via nasal cannula if less than 90% or clinical signs of respiratory distress. * Administer diphenhydramine (Benadryl) 25 mg IV STAT, (unless patient has received as pre-med). May repeat once, if necessary. * Solu-Cortef 250 mg IVP over 30-60 seconds, use 100 mg vials for each dissolution. * Epinephrine (1mg/1 ml) 0.3 mg subcutaneously or IVP now with any signs of respiratory distress. * Check with physician for new additional pre-med orders if patient is re- challenged or re-treated. [x] May remove PICC line when treatment complete, after confirming with Physician. [x] If the patient is admitted to the hospital, the ED, or transferred via [facility] , complete transfer form including medication reconciliation order sheet. Additional Information: Keep peripheral IV in place for antibiotics until it infiltrates. Follow up with hand surgeon Dr. Dietz on 02/09/18. Also follow up with hand surgeon upon return to [place]. Allergies No Known Allergies Allergy (Unverified 02/04/18 19:19)
--- NOTE | 2018-02-07 12:11 | P.PNID ---
Subjective Remarks: Patient states that he feels okay. He has less pain in the right finger. Denies chills or sweats. Afebrile. White blood cell count down to normal. Necrosis at the tip of the finger is unchanged. Has redness from the PIP joint down to the right third fingertip. Sensation is intact. No longer has erythema at the dorsum of the hand or forearm. Patient's noted that he also was poked by a raw shrimp on the third middle finger also. This is a 62-year-old white male who sustained an injury to the right third finger at the distal palmar aspect with a fishing hook while he was fishing 2 days ago [place] the [place]. The patient developed erythema and he was evaluated as an outpatient at an urgent care and he was started on Bactrim. He subsequently noticed swelling becoming worse and more painful and streaking red pack up the anterior aspect of his right arm up to his mid humerus. Past Medical History: PAST MEDICAL HISTORY: Diabetes mellitus, hypertension, history of lung surgery, history of clots in the bladder about 2 years ago. Allergies/Adverse Reactions: Allergies No Known Allergies Allergy (Unverified 02/04/18 19:19) Objective Vital Signs 02/06/18 15:38 02/06/18 20:00 02/07/18 00:00 Temperature 99.9 F H 99.2 F 99.9 F H Pulse Rate 70 78 63 Respiratory Rate 16 18 18 Blood Pressure 129/60 149/81 H 157/82 H Pulse Oximetry 96 97 97 02/07/18 04:00 02/07/18 08:00 Temperature 97.2 F L 98.6 F Pulse Rate 64 62 Respiratory Rate 20 18 Blood Pressure 159/83 H 154/84 H Pulse Oximetry 96 96 Intake & Output 02/06/18 02/07/18 02/07/18 18:59 06:59 18:59 Intake Total 4180 / 4180 680 / 680 Output Total 450 / 450 Balance 4180 / 4180 230 / 230 Weight 86.7 kg Intake: IV 3200 / 3200 200 / 200 NS Inj 1,000 ML @ 125 mls/hr IV 3000 / 3000 .CONT .Q8H [facility] Rx#:[id number] Maxipime Inj 2,000 MG In NS Inj 100 / 100 100 / 100 100 ML @ 200 mls/hr IV.SIG Q8H [facility] Rx#:[id number] Doxy 100 Inj 100 MG In NS Inj 100 / 100 100 / 100 100 ML @ 100 mls/hr IV.SIG Q12H [facility] Rx#:[id number] Oral 980 / 980 480 / 480 Output: Urine 450 / 450 Other: # Voids 6 3 Date of Last Bowel Movement 02/06/18 02/06/18 # Bowel Movements 1 02/04/18 20:15 Blood - Peripheral Aerobic Blood Culture - Preliminary No growth in 3 days 02/04/18 20:15 Blood - Peripheral Anaerobic Blood Culture - Preliminary No growth in 3 days 02/04/18 20:25 Blood - Peripheral Aerobic Blood Culture - Preliminary No growth in 3 days 02/04/18 20:25 Blood - Peripheral Anaerobic Blood Culture - Preliminary No growth in 3 days Lab - Hematology Results 02/07/18 08:32 WBC 7.6 RBC 3.73 L Hgb 14.0 Hct 39.2 MCV 105.0 H MCH 37.6 H MCHC 35.8 RDW 12.5 Plt Count 126 L MPV 7.9 Neut % (Auto) 74.1 H Lymph % (Auto) 14.7 [place] % (Auto) 10.3 H Eos % (Auto) 0.4 Baso % (Auto) 0.5 Neut # (Auto) 5.6 Lymph # (Auto) 1.1 [place] # (Auto) 0.8 Eos # (Auto) 0.0 Baso # (Auto) 0.0 WBC Differential . Differential Comment Auto diff final Lab - Chemistry Results 02/05/18 02/05/18 02/05/18 12:17 18:43 21:09 POC Glucose 178 H 166 H 202 H 02/06/18 02/06/18 02/06/18 02:55 08:15 13:33 POC Glucose 154 H 197 H 204 H 02/06/18 02/06/18 02/07/18 17:23 20:56 04:08 POC Glucose 223 H 184 H 156 H 02/07/18 07:52 POC Glucose 151 H Imaging: ITS Impressions Finger X-Ray 02/04/18 19:49 CONCLUSION: No evidence of recent bony injury. Physical Exam: PHYSICAL EXAMINATION: GENERAL: No acute distress. Awake and alert. HEENT: Extraocular movements grossly intact. Pupils reactive to light. No icterus. Oropharynx: Mucosa is moist. NECK: Supple, no adenopathy. LUNGS: Clear to auscultation. HEART: Regular rate and rhythm without murmurs, rubs or gallops. EXTREMITIES: The right hand has necrosis at the bulb of the third finger distal aspect. No longer has erythema of the right humerus or right forearm. The entire third finger remains erythematous. SKIN: No diffuse rash. NEUROLOGIC: No gross focal findings. PSYCHIATRIC: Calm and cooperative. Assessment and Plan (1) Cellulitis of finger of right hand Status: Acute Code(s): L03.011 - Cellulitis of right finger - Plan IMPRESSION: 1. Necrotic cellulitis of the right third finger and right hand following a fishhook injury in salt water environment. The fishing hook had already been in use prior to the fishhook injury to the third finger. 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 Improving. 2. Lymphangitis of the right hand. Improved. 3. Diabetes mellitus. 4. Leukocytosis secondary to infection. Improved. RECOMMENDATIONS: Arrange for outpatient IV antibiotic treatment with ceftriaxone 2 g IV daily until 02/12/2018. Continue doxycycline p.o. 100 mg twice a day for 14 days. Patient can have antibiotics administered outpatient and follow-up with a hand surgeon in a few days. He plans to return to [place] on 02/12/2018. He needs to follow-up with a hand surgeon up in [place] as well when he arrives there. Discussed with Dr Abel. Discussed with Case management to arrange antibiotics. Plans have been discussed with the patient and his . Outpatient antibiotic form filled out.
--- NOTE | 2018-02-07 13:09 | P.PN ---
Subjective Interval history: Follow-up necrotic cellulitis of right finger February 07, 2018-patient seen and examined, reported improvement of erythema and swelling. Denies any significant pain. Case discussed with infectious disease specialist. Currently afebrile. Physical Exam Vital signs: Vital Signs 02/06/18 15:38 02/06/18 20:00 02/07/18 00:00 Temperature 99.9 F H 99.2 F 99.9 F H Pulse Rate 70 78 63 Respiratory Rate 16 18 18 Blood Pressure 129/60 149/81 H 157/82 H Pulse Oximetry 96 97 97 02/07/18 04:00 02/07/18 08:00 02/07/18 12:00 Temperature 97.2 F L 98.6 F 98.7 F Pulse Rate 64 62 75 Respiratory Rate 20 18 18 Blood Pressure 159/83 H 154/84 H 138/67 Pulse Oximetry 96 96 96 Intake & Output 02/06/18 02/07/18 02/07/18 18:59 06:59 18:59 Intake Total 4180 / 4180 680 / 680 Output Total 450 / 450 Balance 4180 / 4180 230 / 230 Weight 86.7 kg Intake: IV 3200 / 3200 200 / 200 NS Inj 1,000 ML @ 125 mls/hr IV 3000 / 3000 .CONT .Q8H [facility] Rx#:[id number] Maxipime Inj 2,000 MG In NS Inj 100 / 100 100 / 100 100 ML @ 200 mls/hr IV.SIG Q8H [facility] Rx#:[id number] Doxy 100 Inj 100 MG In NS Inj 100 / 100 100 / 100 100 ML @ 100 mls/hr IV.SIG Q12H [facility] Rx#:[id number] Oral 980 / 980 480 / 480 Output: Urine 450 / 450 Other: # Voids 6 3 Date of Last Bowel Movement 02/06/18 02/06/18 # Bowel Movements 1 Narrative: GENERAL: Well-nourished, well-developed pleasant middle-age male patient in [facility]. SKIN: Warm and dry. Right 3rd digit with diffuse erythema/edema and distal necrosis CARDIOVASCULAR: Regular rate and rhythm. No murmur appreciated. RESPIRATORY: No accessory muscle use. Clear to auscultation. Breath sounds equal bilaterally. GASTROINTESTINAL: Abdomen soft, non-tender, nondistended. Normoactive bowel sounds x4. Results - Labs CBC & Chem 7: 02/07/18 08:32 02/05/18 09:07 Laboratory Results - last 24 hr 02/06/18 02/06/18 02/06/18 13:33 17:23 20:56 WBC RBC Hgb Hct MCV MCH MCHC RDW Plt Count MPV Neut % (Auto) Lymph % (Auto) [place] % (Auto) Eos % (Auto) Baso % (Auto) Neut # (Auto) Lymph # (Auto) [place] # (Auto) Eos # (Auto) Baso # (Auto) WBC Differential Differential Comment POC Glucose 204 H 223 H 184 H 02/07/18 02/07/18 02/07/18 04:08 07:52 08:32 WBC 7.6 RBC 3.73 L Hgb 14.0 Hct 39.2 MCV 105.0 H MCH 37.6 H MCHC 35.8 RDW 12.5 Plt Count 126 L MPV 7.9 Neut % (Auto) 74.1 H Lymph % (Auto) 14.7 [place] % (Auto) 10.3 H Eos % (Auto) 0.4 Baso % (Auto) 0.5 Neut # (Auto) 5.6 Lymph # (Auto) 1.1 [place] # (Auto) 0.8 Eos # (Auto) 0.0 Baso # (Auto) 0.0 WBC Differential . Differential Comment Auto diff final POC Glucose 156 H 151 H 02/07/18 12:09 WBC RBC Hgb Hct MCV MCH MCHC RDW Plt Count MPV Neut % (Auto) Lymph % (Auto) [place] % (Auto) Eos % (Auto) Baso % (Auto) Neut # (Auto) Lymph # (Auto) [place] # (Auto) Eos # (Auto) Baso # (Auto) WBC Differential Differential Comment POC Glucose 262 H Microbiology 02/04/18 20:15 Blood - Peripheral Aerobic Blood Culture - Preliminary No growth in 3 days 02/04/18 20:15 Blood - Peripheral Anaerobic Blood Culture - Preliminary No growth in 3 days 02/04/18 20:25 Blood - Peripheral Aerobic Blood Culture - Preliminary No growth in 3 days 02/04/18 20:25 Blood - Peripheral Anaerobic Blood Culture - Preliminary No growth in 3 days - Procedures None Assessment and Plan - Plan 62-year-old man with 1. Necrotic cellulitis of the right third finger and right hand following a fishhook injury in salt water environment. 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 Improving on cefepime and doxy, however per ID patient will be discharged home on Rocephin until February 12, 2018 and doxycycline 100 mg p.o. twice daily 14 days. Patient will need follow-up with hand surgery back in [place]. 2. Lymphangitis of the right hand. Improved. 3. Diabetes mellitus. Resume metformin and continue other outpatient medication. 4. Leukocytosis secondary to infection. Improved. 5. Hypertension: chronic, BP fairly well controlled -Continue patient's lisinopril, HCTZ, amlodipine, metoprolol -Monitor BP, adjust antihypertensives as needed DVT Prophylaxis: teds/SCDs; ambulatory. avoid chemical prophylaxis incase surgery is indicated
--- NOTE | 2018-02-07 13:22 | P.DS ---
Date of admission: 02/04/18 21:10 Primary care physician: UNKNOWN Anticipated date of discharge: 02/07/18 Brief History from admission: 62-year-old male with past medical history significant for diabetes mellitus and hypertension presents to the emergency department for the evaluation of right third digit pain and swelling. The patient reports that yesterday he was fishing when he got a fishhook puncture wound in the finger. He states that he developed some pain and swelling so he went to urgent care for further evaluation and was given Bactrim. The patient reports that throughout the course of the day his hand has become more swollen, he states his knuckles are no longer identifiable and the dorsum of his hand is red and painful. The swelling and erythema extends up his arm. He denies any associated fever/ chills. He has difficulty with range of motion. No chest pain or shortness of breath. No abdominal pain. No nausea/vomiting/diarrhea. DS: Summary Hospital Course: While in hospital, patient was treated for: 1. Necrotic cellulitis of the right third finger and right hand following a fishhook injury in salt water environment. 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 Improving on cefepime and doxy, however per ID patient will be discharged home on Rocephin until February 12, 2018 and doxycycline 100 mg p.o. twice daily 14 days. Patient will need follow-up with hand surgery back in [place]. 2. Lymphangitis of the right hand. Improved. 3. Diabetes mellitus. Resume metformin and continue other outpatient medication. 4. Leukocytosis secondary to infection. Improved. 5. Hypertension: chronic, BP fairly well controlled -Continue patient's lisinopril, HCTZ, amlodipine, metoprolol -Monitor BP, adjust antihypertensives as needed - Time Spent with Patient Total time spent providing and/or coordinating discharge services: Less than 30 minutes - Quality: VTE Deep Vein Thrombosis/Pulmonary Embolism Present on Admission: No Exam Vital signs: Vital Signs 02/06/18 15:38 02/06/18 20:00 02/07/18 00:00 Temperature 99.9 F H 99.2 F 99.9 F H Pulse Rate 70 78 63 Respiratory Rate 16 18 18 Blood Pressure 129/60 149/81 H 157/82 H Pulse Oximetry 96 97 97 02/07/18 04:00 02/07/18 08:00 02/07/18 12:00 Temperature 97.2 F L 98.6 F 98.7 F Pulse Rate 64 62 75 Respiratory Rate 20 18 18 Blood Pressure 159/83 H 154/84 H 138/67 Pulse Oximetry 96 96 96 Intake & Output 02/06/18 02/07/18 02/07/18 18:59 06:59 18:59 Intake Total 4180 / 4180 680 / 680 Output Total 450 / 450 Balance 4180 / 4180 230 / 230 Weight 86.7 kg Intake: IV 3200 / 3200 200 / 200 NS Inj 1,000 ML @ 125 mls/hr IV 3000 / 3000 .CONT .Q8H [facility] Rx#:[id number] Maxipime Inj 2,000 MG In NS Inj 100 / 100 100 / 100 100 ML @ 200 mls/hr IV.SIG Q8H [facility] Rx#:[id number] Doxy 100 Inj 100 MG In NS Inj 100 / 100 100 / 100 100 ML @ 100 mls/hr IV.SIG Q12H [facility] Rx#:[id number] Oral 980 / 980 480 / 480 Output: Urine 450 / 450 Other: # Voids 6 3 Date of Last Bowel Movement 02/06/18 02/06/18 # Bowel Movements 1 Narrative: GENERAL: NAD SKIN: Warm and dry. HEAD: Normocephalic. EYES: No scleral icterus. No injection or drainage. NECK: Supple, trachea midline. No JVD or lymphadenopathy. CARDIOVASCULAR: Regular rate and rhythm without murmurs, gallops, or rubs. RESPIRATORY: Breath sounds equal bilaterally. No accessory muscle use. GASTROINTESTINAL: Abdomen soft, non-tender, nondistended. MUSCULOSKELETAL: No cyanosis, or edema. Right third necrotic finger with surrounding erythema BACK: Nontender without obvious deformity. No CVA tenderness. Results Procedures completed during hospitalization: None Labs on day of discharge: Labs from last 24 hours 02/07/18 02/07/18 02/07/18 12:09 08:32 07:52 WBC 7.6 RBC 3.73 L Hgb 14.0 Hct 39.2 MCV 105.0 H MCH 37.6 H MCHC 35.8 RDW 12.5 Plt Count 126 L MPV 7.9 Neut % (Auto) 74.1 H Lymph % (Auto) 14.7 [place] % (Auto) 10.3 H Eos % (Auto) 0.4 Baso % (Auto) 0.5 Neut # (Auto) 5.6 Lymph # (Auto) 1.1 [place] # (Auto) 0.8 Eos # (Auto) 0.0 Baso # (Auto) 0.0 WBC Differential . Differential Comment Auto diff final POC Glucose 262 H 151 H 02/07/18 02/06/18 02/06/18 04:08 20:56 17:23 WBC RBC Hgb Hct MCV MCH MCHC RDW Plt Count MPV Neut % (Auto) Lymph % (Auto) [place] % (Auto) Eos % (Auto) Baso % (Auto) Neut # (Auto) Lymph # (Auto) [place] # (Auto) Eos # (Auto) Baso # (Auto) WBC Differential Differential Comment POC Glucose 156 H 184 H 223 H 02/06/18 13:33 WBC RBC Hgb Hct MCV MCH MCHC RDW Plt Count MPV Neut % (Auto) Lymph % (Auto) [place] % (Auto) Eos % (Auto) Baso % (Auto) Neut # (Auto) Lymph # (Auto) [place] # (Auto) Eos # (Auto) Baso # (Auto) WBC Differential Differential Comment POC Glucose 204 H Preliminary micro results at discharge 02/04/18 20:15 Aerobic Blood Culture - Preliminary Blood - Peripheral No growth in 3 days Anaerobic Blood Culture - Preliminary No growth in 3 days 02/04/18 20:25 Aerobic Blood Culture - Preliminary Blood - Peripheral No growth in 3 days Anaerobic Blood Culture - Preliminary No growth in 3 days - Impressions ITS Impressions Finger X-Ray 02/04/18 19:49 CONCLUSION: No evidence of recent bony injury. Discharge Plan - Discharge Disposition Patient Disposition: 01 Discharge Home - Discharge Condition Condition: Good - Discharge Order Discharge Orders: Discharge Order (Routine); Ordered 02/07/18 Ordered By: Rodger Abel - Physicians Team Primary Care Provider: UNKNOWN, Attending Provider: Rodger Abel Other Providers: Hi Quiñonze MD ; Danielito Pantoja MD ; Gerardo [facility],Agency
--- NOTE | 2018-02-08 17:24 | P.CON ---
History of Present Illness Service: Hand surgery Consult date: 02/04/18 Primary Care Provider: UNKNOWN History of Present Illness: History obtained from patient and chart 62-year-old male with past medical history significant for diabetes mellitus and hypertension presents to the emergency department for the evaluation of right third digit pain and swelling. The patient reports that the day before discharge he was fishing when he got a fishhook puncture wound in the finger. He states that he developed some pain and swelling so he went to urgent care for further evaluation and was given Bactrim. The patient reports that throughout the course of the day his hand became more swollen, he states his knuckles are no longer identifiable and the dorsum of his hand is red and painful. The swelling and erythema extends up his arm. He denies any associated fever/chills. He has difficulty with range of motion. No chest pain or shortness of breath. No abdominal pain. No nausea/vomiting/diarrhea. Except as noted in the HPI review of systems negative to presenting complaint Medication list reviewed No known drug allergies - History History Provided By: Patient - Medical History Medical History: Medical History (Last Reviewed 02/04/18 @ 21:00 by BRENDEN Mcleod) Blood clot in bladder Diabetes Hypertension Pulmonary lump - Surgical History Surgical History: Surgical History (Last Updated 02/04/18 @ 23:52 by Meli Burton MD) History of lung surgery - Family History Family History: Family History (Last Updated 02/04/18 @ 23:52 by Meli Burton MD) Other Diabetes mellitus Lung cancer - Tobacco History Second Hand Smoke Exposure: No Smoking Status: Former smoker - Alcohol History How Often Do You Have a Drink Containing Alcohol: 4 or more times a week - Substance Use History Substance History: No History of Abuse - Travel History Recent Travel in the [facility] Within the [facility] - History History Provided By: Patient - Medical History Medical History: Medical History (Last Reviewed 02/04/18 @ 21:00 by BRENDEN Mcleod) Blood clot in bladder Diabetes Hypertension Pulmonary lump - Surgical History Surgical History: Surgical History (Last Updated 02/04/18 @ 23:52 by Meli Burton MD) History of lung surgery - Family History Family History: Family History (Last Updated 02/04/18 @ 23:52 by Meli Burton MD) Other Diabetes mellitus Lung cancer - Tobacco History Second Hand Smoke Exposure: No Smoking Status: Never smoker - Alcohol History How Often Do You Have a Drink Containing Alcohol: 2 to 4 times a month - Substance Use History Substance History: No History of Abuse - Travel History Recent Travel in the [place] Within the Last 8 Weeks: No Recent Travel Out of the Country Within the Last 8 Weeks: No - Immunization History Tetanus Immunization: Unsure Hx Influenza Vaccine This Season: Yes Medications and Allergies Allergies Allergy/AdvReac Type Severity Reaction Status Date / Time No Known Allergies Allergy Unverified 02/04/18 19:19 Home Medications Medication Instructions Recorded Confirmed Type amlodipine 5 mg PO DAILY 02/04/18 02/04/18 History coenzyme Q10 [Co Q-10] 100 mg PO DAILY 02/04/18 02/04/18 History lisinopril-hydrochlorothiazide 1 tab PO DAILY 02/04/18 02/04/18 History metformin 1,000 mg PO BID 02/04/18 02/04/18 History metoprolol succinate 50 mg PO DAILY 02/04/18 02/04/18 History Physical Exam Vital signs: Intake & Output 02/07/18 02/08/18 02/08/18 18:59 06:59 18:59 Weight 86.7 kg Other: Date of Last Bowel Movement 02/06/18 Narrative: No apparent anxiety moist mucous membranes PERRLA skin without rash respirations nonlabored gait within normal limits digits warm well perfused Right middle finger Mild to moderate edema/edema Positive lymphatic streaking has resolved Moderate tenderness over volar P2 and P3, though proximal flexor tendon sheath minimally tender Patient able to fully extend middle finger as well as come close to making a composite fist Sensation intact light touch distally Small 1 cm area of middle fingertip pad necrosis No fluctuance appreciated Assessment and Plan - Assessment (1) Cellulitis of finger of right hand Code(s): L03.011 - Cellulitis of right finger Status: Acute - Plan 62-year-old male with left middle fingertip cellulitis Do not appreciate anything fluctuant Antibiotics per primary Follow-up as needed
== END 2018-02-07 16:10 | disposition home or self-care (01) ==
LOC: NEPB 18:51 → NEDA 21:10 → NEPFCDU 23:44 → H7ONC 02-05 23:35
PROVIDERS: ADMIT Hospitalist; ATTEND Hospitalist